=== PATIENT | female | born 1990 | race African-American/Black ===

== ENCOUNTER 2017-01-14 21:08 | Emergency (ER) | payer SELFPAY ==
[2017-01-14] MEDS ORDERED: Lidocaine 2% Viscous Solution 15 ML Cup PO ONE (21:30)
[2017-01-14] MEDS ORDERED: Benzocaine 20% Topical Spray UD MUCMEM ONE (21:30)
--- NOTE | 2017-01-14 21:35 | EDM.PDOC ---
ED HPI GENERAL MEDICAL PROBLEM - General Chief Complaint: ENT Problem Stated Complaint: TOOTH PAIN Time Seen by Provider: 01/14/17 21:32 Source of Information: Reports: Patient History Limitations: Reports: No Limitations - History of Present Illness INITIAL COMMENTS - FREE TEXT/NARRATIVE: History of present illness: [18-year-old female presenting with complaints of right lower tooth pain in the area of approximately 27. 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 Past medical history: As per history of present illness and as reviewed below otherwise noncontributory. Surgical history: As per history of present illness and as reviewed below otherwise noncontributory. Social history: No reported history of drug or alcohol abuse. Family history: As per history of present illness and as reviewed below otherwise noncontributory. Physical exam: HEENT: Atraumatic, normocephalic, pupils reactive, negative for conjunctival pallor or scleral icterus, mucous membranes moist, throat clear, neck supple, nontender, trachea midline. Lungs: Clear to auscultation, breath sounds equal bilaterally, chest nontender. Heart: S1S2, regular, negative for clicks, rubs, or JVD. Abdomen: Soft, nondistended, nontender. Negative for masses or hepatosplenomegaly. Negative for costovertebral tenderness. Pelvis: Stable nontender. Genitourinary: Deferred. Rectal: Deferred. Extremities: Atraumatic, negative for cords or calf pain. Neurovascular unremarkable. Neuro: Awake, alert, oriented. Cranial nerves II through XII unremarkable. Cerebellum unremarkable. Motor and sensory unremarkable throughout. Exam nonfocal. Poor dental hygiene with tooth fracture down to the gumline with obvious caries present Diagnostics: [] Therapeutics: [Dental balls] Impression: [Dental caries, dental abscess] Plan: [Amoxicillin, dental balls, ibuprofen [id number] or Tylenol] Definitive disposition and diagnosis as appropriate pending reevaluation and review of above. 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 (See Below) Other OB/BYN History: Social & Family History - Family History Family Medical History: Noncontributory - Tobacco Use Smoking Status *Q: Never Smoker - Caffeine Use Caffeine Use: Reports: None - Recreational Drug Use Recreational Drug Use: No ED ROS ENT - Review of Systems Review Of Systems: See Below (History of present illness) ED EXAM, ENT - Physical Exam Exam: See Below (See history of present illness) Course - Vital Signs Last Recorded V/S: Last Vital Signs Temp 36.1 C 01/14/17 21:20 Pulse 93 01/14/17 21:20 Resp 18 01/14/17 21:20 BP 119/70 01/14/17 21:20 Pulse Ox 99 01/14/17 21:20 - Orders/Labs/Meds Meds: Medications Discontinued Medications Generic Name Dose Route Start Last Admin Trade Name Frank PRN Reason Stop Dose Admin Benzocaine 2 each 01/14/17 21:30 Hurricaine One 20% MUCMEM 01/14/17 21:31 ONETIME ONE Lidocaine HCl 15 ml 01/14/17 21:30 Xylocaine 2% Viscous PO 01/14/17 21:31 ONETIME ONE Departure - Departure Time of Disposition: 21:34 Disposition: Home, Self-Care 01 Condition: Good Clinical Impression: Dental caries extending into dentin - Discharge Information Prescriptions: Amoxicillin [IMW: Amoxicillin] 500 mg PO .THREE TIMES DAILY #30 cap Forms: ED Department Discharge Additional Instructions: The following information is given to patients seen in the emergency department who are being discharged to home. This information is to outline your options for follow-up care. We provide all patients seen in our emergency department with a follow-up referral. The need for follow-up, as well as the timing and circumstances, are variable depending upon the specifics of your emergency department visit. If you don't have a primary care physician on staff, we will provide you with a referral. We always advise you to contact your personal physician following an emergency department visit to inform them of the circumstance of the visit and for follow-up with them and/or the need for any referrals to a consulting specialist. The emergency department will also refer you to a specialist when appropriate. This referral assures that you have the opportunity for follow-up care with a specialist. All of these measure are taken in an effort to provide you with optimal care, which includes your follow-up. Under all circumstances we always encourage you to contact your private physician who remains a resource for coordinating your care. When calling for follow-up care, please make the office aware that this follow-up is from your recent emergency room visit. If for any reason you are refused follow-up, please contact the [facility] Emergency Department at and asked to speak to the emergency department charge nurse. Take medication as directed Follow-up with the dentist TUAN Follow-up the primary care provider one to 2 days Return to ED as needed as discussed [facility] [address] [place] [id number]
[2017-01-15 01:35] VITALS: BP 118/68
== END 2017-01-14 21:55 | disposition home or self-care (01) ==
LOC: MERGE 21:08 → MW.ED 21:08
DX: K02.7 Dental root caries (principal); K04.7 Periapical abscess without sinus
CPT/HCPCS: 99282; A9270

== ENCOUNTER 2017-01-17 07:29 | Emergency (ER) | payer SELFPAY ==
--- NOTE | 2017-01-17 07:34 | EDM.PDOC ---
ED HPI GENERAL MEDICAL PROBLEM - General Stated Complaint: TOOTH PAIN Time Seen by Provider: 01/17/17 07:31 Source of Information: Reports: Patient - History of Present Illness INITIAL COMMENTS - FREE TEXT/NARRATIVE: HISTORY AND PHYSICAL: History of present illness: Patient presents with dental pain she is 19 weeks with IUP, she was just seen and cleared from OB department She was also seen on January 14 with dental pain and provided amoxicillin 500 mg by mouth 3 times a day she has not taken this medication presents as such continued pain 7 out of 10 right lower jaw is swollen and tender gums consistent with early abscess formation nothing for drainage at this point No fever nausea vomiting chills sweats Review of systems: As per history of present illness and below otherwise all systems reviewed and negative. Past medical history: As per history of present illness and as reviewed below otherwise noncontributory. Surgical history: As per history of present illness and as reviewed below otherwise noncontributory. Social history: No reported history of drug or alcohol abuse. Family history: As per history of present illness and as reviewed below otherwise noncontributory. Physical exam: HEENT: Atraumatic, normocephalic, pupils reactive, negative for conjunctival pallor or scleral icterus, mucous membranes moist, throat clear, neck supple, nontender, trachea midline. Generally poor dentition noted Lungs: Clear to auscultation, breath sounds equal bilaterally, chest nontender. Heart: S1S2, regular, negative for clicks, rubs, or JVD. Abdomen: Soft, nondistended, nontender. Negative for masses or hepatosplenomegaly. Negative for costovertebral tenderness. Pelvis: Stable nontender. Genitourinary: Deferred. Rectal: Deferred. Extremities: Atraumatic, negative for cords or calf pain. Neurovascular unremarkable. Neuro: Awake, alert, oriented. Cranial nerves II through XII unremarkable. Cerebellum unremarkable. Motor and sensory unremarkable throughout. Exam nonfocal. Diagnostics: [] Therapeutics: []Amoxicillin 500 by mouth 3 times a day #30 provided previously please take these medications [place] Continue ibuprofen as needed Impression: []Medication noncompliance Dental pain Dental caries Early abscess formation 19-20 weeks with IUP Definitive disposition and diagnosis as appropriate pending reevaluation and review of above. 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 ED EXAM, GENERAL - Physical Exam Exam: See Below Departure - Departure Time of Disposition: 07:33 Disposition: Home, Self-Care 01 Condition: Good Clinical Impression: Dental caries extending into dentin - Discharge Information Additional Instructions: Continue medications taking amoxicillin 3 times daily as prescribed Pain medicine as directed Follow-up with dentist as soon as possible The following information is given to patients seen in the emergency department who are being discharged to home. This information is to outline your options for follow-up care. We provide all patients seen in our emergency department with a follow-up referral. The need for follow-up, as well as the timing and circumstances, are variable depending upon the specifics of your emergency department visit. If you don't have a primary care physician on staff, we will provide you with a referral. We always advise you to contact your personal physician following an emergency department visit to inform them of the circumstance of the visit and for follow-up with them and/or the need for any referrals to a consulting specialist. The emergency department will also refer you to a specialist when appropriate. This referral assures that you have the opportunity for follow-up care with a specialist. All of these measure are taken in an effort to provide you with optimal care, which includes your follow-up. Under all circumstances we always encourage you to contact your private physician who remains a resource for coordinating your care. When calling for follow-up care, please make the office aware that this follow-up is from your recent emergency room visit. If for any reason you are refused follow-up, please contact the [facility] emergency department at and asked to speak to the emergency department charge nurse.
== END 2017-01-17 08:10 | disposition home or self-care (01) ==
LOC: MW.ED 07:29
CPT/HCPCS: 99282

== ENCOUNTER 2017-04-29 03:54 | Inpatient (IN) | payer MEDICAID ==
[2017-04-29] MEDS ORDERED: Nalbuphine 10 MG/1 ML Vial IVPUSH PRN (04:20)
[2017-04-29] MEDS ORDERED: Sodium Chloride 0.9% 10 ML Syringe FLUSH PRN (04:20)
[2017-04-29] MEDS ORDERED: Lidocaine 1% 50 ML MDV INJECT PRN (04:20)
[2017-04-29] MEDS ORDERED: Carboprost Tromethamine 250 MCG/1 ML Amp IM PRN (04:20)
[2017-04-29] MEDS ORDERED: Butorphanol 1 MG/ML SDV IVPUSH PRN (04:20)
[2017-04-29] MEDS ORDERED: Sodium Chloride 0.9% 2.5 ML Syringe FLUSH PRN (04:20)
[2017-04-29] MEDS ORDERED: Methylergonovine 0.2 MG/1 ML Amp IM PRN ×2 (04:20→05:50)
[2017-04-29] MEDS ORDERED: Water For Irrigation,Sterile 1,000 ML Container IRR PRN (04:20)
[2017-04-29] MEDS ORDERED: Misoprostol 200 MCG Tab PO PRN (04:20)
[2017-04-29] MEDS ORDERED: Lactated Ringers 1,000 ML IV SCH (04:30)
[2017-04-29] MEDS ORDERED: Oxytocin/0.9 % Sodium Chloride 30 UNIT/500 ML BAG IV SCH (04:30)
[2017-04-29] MEDS ORDERED: Lanolin 100% Cream 7 GM Tube TOP PRN (05:50)
[2017-04-29] MEDS ORDERED: Witch Hazel Medicated Pads 40/Jar TOP PRN (05:50)
[2017-04-29] MEDS ORDERED: Benzocaine/Menthol 20%-0.5% Spray 78 GM Cannister TOP PRN (05:50)
[2017-04-29] MEDS ORDERED: Docusate Sodium 100 MG Cap PO PRN (05:50)
[2017-04-29] MEDS ORDERED: Bisacodyl 10 MG Supp RECTAL PRN (05:50)
--- NOTE | 2017-04-29 06:32 | PCM.LDHP ---
<Tommy Chawla - Last Filed: 04/29/17 06:26> L&D History of Present Illness - General Date of Service: 04/29/17 Admit Problem/Dx: Patient Status Order with Admit Dx/Problem 04/29/17 05:50 Patient Status [ADT] Routine Admission Diagnosis/Problem Admission Diagnosis/Problem Source of Information: Family History Limitations: Reports: Language Barrier (Used lens and frames prescription clerk through hospital IT) - History of Present Illness Introduction:: A 36yo female at 38wk6d arrived at labor and delivery with increasing labor pains and contraction frequency. She states that she began to go into labor yesterday, 04/29/17, at 12pm. She came in when the contractions became intense. Timing/Duration: Reports: gradual onset Location, : Reports: Uterus Quality: Reports: Dull Severity: Moderate Pain Score: 10 - Related Data Allergies/Adverse Reactions: Allergies Allergy/AdvReac Type Severity Reaction Status Date / Time No Known Allergies Allergy Verified 01/17/17 05:43 Home Medications: Home Meds Amoxicillin [IMW: Amoxicillin] 500 mg PO TID 01/17/17 [History] Dental Balls 1 - 2 unit BUCCAL ASDIRECTED 01/17/17 [History] Pnv No.122/Iron/Folic Acid [ Multi Tablet] 1 each PO DAILY 01/17/17 [ History] Past Medical History - Past Health History Medical/Surgical History: Denies Medical/Surgical History HEENT History: Reports: Other (See Below) Other HEENT History: dental caries Cardiovascular History: Reports: None Respiratory History: Reports: None Gastrointestinal History: Reports: None Genitourinary History: Reports: None 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 Denies: Hepatitis A, Hepatitis B, Hepatitis C - Past Surgical History Head Surgeries/Procedures: Reports: None Cardiovascular Surgical History: Reports: None Respiratory Surgical History: Reports: None GI Surgical History: Reports: None Female Surgical History: Reports: None Male Surgical History: Reports: None Endocrine Surgical History: Reports: None Neurological Surgical History: Reports: None Musculoskeletal Surgical History: Reports: None Oncologic Surgical History: Reports: None Dermatological Surgical History: Reports: None Social & Family History - Family History Family Medical History: Noncontributory - Tobacco Use Smoking Status *Q: Never Smoker Second Hand Smoke Exposure: No - Caffeine Use Caffeine Use: Reports: Coffee, Soda - Alcohol Use Alcohol Use History: No - Recreational Drug Use Recreational Drug Use: No - Sexual History Sexual History: Reports: None Other Sexual History Comment: Claims she only has had one partner - Living Situation & Occupation Living situation: Reports: Occupation: Unemployed Social History Comment: She lives at home in [place] with her , Jihan , and one child(2yo). 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 They stated that one child is still in the [facility]. H&P Review of Systems - Review of Systems: Review Of Systems: See Below General: Denies: Fever, Chills HEENT: Reports: Other (Tooth Pain). Denies: Ear Pain, Eye Pain, Hearing Changes Pulmonary: Denies: Shortness of Breath, Pleuritic Chest Pain, Cough Cardiovascular: Denies: Chest Pain, Palpitations, Dyspnea on Exertion Gastrointestinal: Denies: Constipation, Nausea, Vomiting Genitourinary: Denies: Dysuria, Frequency, Burning, Pain, Urgency Musculoskeletal: Denies: Neck Pain Psychiatric: Denies: Confusion Neurological: Denies: Confusion, Dizziness, Headache L&D Exam - Vital Signs Weight: 72.575 kg - OB Specific Contraction Intensity: Mild to Moderate Movement: Active Heart Tones: Present Heart Tones per Min: 150 Heart Rate (FHR) Variability: Moderate (6-25 bmp) Presentation: Right Occiput Anterior (ANDREW) - Exam General: Alert, Oriented HEENT: Hearing Intact, Mucosa Moist & [place], Pupils Reactive, Other (Multiple Dental Caries) Neck: Supple, Trachea Midline Lungs: Clear to Auscultation, Normal Respiratory Effort Cardiovascular: Regular Rate, Regular Rhythm GI/Abdominal Exam: Normal Bowel Sounds, Soft Genitourinary: Normal external exam Back Exam: Full Range of Motion Extremities: Normal Inspection, Normal Range of Motion, Non-Tender, Pedal Edema (trace) Skin: Warm, Dry, Intact Neurological: Cranial Nerves Intact Psychiatric: Alert, Normal Affect, Normal Mood - Patient Data Lab Results Last 24 hrs: Laboratory Results - last 24 hr 04/29/17 04/29/17 Range/Units 04:34 04:34 WBC 9.32 (4.0-11.0) K/uL RBC 4.69 (4.30-5.90) M/uL Hgb 11.9 L (12.0-16.0) g/dL Hct 36.4 (36.0-46.0) % MCV 77.6 L (80.0-98.0) fL MCH 25.4 L (27.0-32.0) pg MCHC 32.7 (31.0-37.0) g/dL RDW Std Deviation 41.8 (28.0-62.0) fl RDW Coeff of Aiden 15 (11.0-15.0) % Plt Count 176 (150-400) K/uL MPV 11.40 (7.40-12.00) fL Nucleated RBC % 0.0 /100WBC Nucleated RBCs # 0 K/uL Blood Type O POSITIVE Antibody Screen NEGATIVE Result Diagrams: 04/29/17 04:34 - Problem List (1) SNOMED Code(s): 66331135 ICD Code: Z34.90 - ENCNTR FOR SUPRVSN OF NORMAL , UNSP, UNSP TRIMESTER Status: Acute Current Visit: Yes QualifierTitle: Weeks of gestation: 38 weeks Qualified Code(s): Z3A.38 - 38 weeks gestation of Problem List Initiated/Reviewed/Updated: Yes Orders Last 24hrs: Active Orders 24 hr Category Date Time Status Patient Status [ADT] Routine ADT 04/29/17 05:50 Active Heart Tones [RC] CONTINUOUS Care 04/29/17 04:21 Inactive Non Stress Test [RC] PER UNIT ROUTINE Care 04/29/17 04:21 Inactive May Shower [RC] ASDIRECTED Care 04/29/17 05:50 Active Up ad Saloni [RC] ASDIRECTED Care 04/29/17 05:50 Active Vaginal Exam [RC] PRN Care 04/29/17 04:21 Inactive Vital Signs [RC] PER UNIT ROUTINE Care 04/29/17 04:21 Inactive Vital Signs [RC] PER UNIT ROUTINE Care 04/29/17 05:50 Active Regular Diet [DIET] Diet 04/29/17 Breakfast Active HEMOGLOBIN/HEMATOCRIT,HH [HEME] Timed Lab 04/30/17 05:11 Ordered Acetaminophen [Tylenol Extra Strength] Med 04/29/17 05:50 Active 1,000 mg PO Q4H PRN Benzocaine/Menthol [Dermoplast Pain Relief 20%-0.5% Med 04/29/17 05:50 Active [employer]] 78 gm TOP ASDIRECTED PRN Bisacodyl [Dulcolax] Med 04/29/17 05:50 Active 10 mg RECTAL .ONCE PRN Docusate Sodium [Colace] Med 04/29/17 05:50 Active 100 mg PO BID PRN Ibuprofen [Motrin] Med 04/29/17 05:50 Active 800 mg PO Q6H PRN Lanolin [Lansinoh HPA] Med 04/29/17 05:50 Active See Dose Instructions TOP ASDIRECTED PRN Methylergonovine [Methergine] Med 04/29/17 05:50 Active 0.2 mg IM .ONCE PRN Witwes Wagnerel [Tucks] Med 04/29/17 05:50 Active 1 pad TOP ASDIRECTED PRN oxyCODONE Med 04/29/17 05:50 Active 5 mg PO Q2H PRN Assess Lochia [WOMSER] Per Unit Routine Oth 04/29/17 05:50 Ordered Assess Uterine Involution [WOMSER] Per Unit Routine Oth 04/29/17 05:50 Ordered Perineal Care [OM.PC] Per Unit Routine Oth 04/29/17 05:51 Ordered Peripheral IV Discontinue [OM.PC] Routine Oth 04/29/17 05:50 Ordered Resuscitation Status Routine Resus Stat 04/29/17 05:50 Ordered Medication Orders Acetaminophen (Tylenol Extra Strength) 1,000 mg PO Q4H PRN PRN Reason: Pain Benzocaine/Menthol (Dermoplast Pain Relief 20%-0.5% [employer]) 78 gm TOP ASDIRECTED PRN PRN Reason: Perineal Comfort Measure Bisacodyl (Dulcolax) 10 mg RECTAL .ONCE PRN PRN Reason: Constipation Docusate Sodium (Colace) 100 mg PO BID PRN PRN Reason: Constipation Emollient Ointment (Lansinoh Hpa) 0 gm TOP ASDIRECTED PRN PRN Reason: Sore Nipples Ibuprofen (Motrin) 800 mg PO Q6H PRN PRN Reason: Pain Methylergonovine Maleate (Methergine) 0.2 mg IM .ONCE PRN PRN Reason: Excessive Vaginal Bleeding Oxycodone HCl (Oxycodone) 5 mg PO Q2H PRN PRN Reason: Pain Witch Mitzi (Tucks) 1 pad TOP ASDIRECTED PRN PRN Reason: comfort care Assessment/Plan Comment:: Assessment:Patient 26yo F at 38wk6d in active labor heart rate in 150s Contraction:Every 2-3 mins :No known complications Patient Asked for contraception before she leaves Patient plans to bottle feed Plan:Admit to L&D Anticipate <Alie Jiménez - Last Filed: 04/29/17 12:36> L&D History of Present Illness - General Admit Problem/Dx: Patient Status Order with Admit Dx/Problem 04/29/17 05:50 Patient Status [ADT] Routine Admission Diagnosis/Problem Admission Diagnosis/Problem L&D Exam - Exam Exam: See Below - Vital Signs Vital Signs: Last Vital Signs Temp 36.8 C 04/29/17 08:00 Pulse 89 04/29/17 08:00 Resp 16 04/29/17 08:00 BP 106/59 L 04/29/17 08:00 Pulse Ox 99 04/29/17 08:00 - Patient Data Lab Results Last 24 hrs: Laboratory Results - last 24 hr 04/29/17 04/29/17 Range/Units 04:34 04:34 WBC 9.32 (4.0-11.0) K/uL RBC 4.69 (4.30-5.90) M/uL Hgb 11.9 L (12.0-16.0) g/dL Hct 36.4 (36.0-46.0) % MCV 77.6 L (80.0-98.0) fL MCH 25.4 L (27.0-32.0) pg MCHC 32.7 (31.0-37.0) g/dL RDW Std Deviation 41.8 (28.0-62.0) fl RDW Coeff of Aiden 15 (11.0-15.0) % Plt Count 176 (150-400) K/uL MPV 11.40 (7.40-12.00) fL Nucleated RBC % 0.0 /100WBC Nucleated RBCs # 0 K/uL Blood Type O POSITIVE Antibody Screen NEGATIVE Result Diagrams: 04/29/17 04:34 Orders Last 24hrs: Active Orders 24 hr Category Date Time Status Patient Status [ADT] Routine ADT 04/29/17 05:50 Active Heart Tones [RC] CONTINUOUS Care 04/29/17 04:21 Inactive Non Stress Test [RC] PER UNIT ROUTINE Care 04/29/17 04:21 Inactive May Shower [RC] ASDIRECTED Care 04/29/17 05:50 Active Up ad Saloni [RC] ASDIRECTED Care 04/29/17 05:50 Active Vaginal Exam [RC] PRN Care 04/29/17 04:21 Inactive Vital Signs [RC] PER UNIT ROUTINE Care 04/29/17 04:21 Inactive Vital Signs [RC] PER UNIT ROUTINE Care 04/29/17 05:50 Active Regular Diet [DIET] Diet 04/29/17 Breakfast Active HEMOGLOBIN/HEMATOCRIT,HH [HEME] Timed Lab 04/30/17 05:11 Ordered Acetaminophen [Tylenol Extra Strength] Med 04/29/17 05:50 Active 1,000 mg PO Q4H PRN Benzocaine/Menthol [Dermoplast Pain Relief 20%-0.5% Med 04/29/17 05:50 Active [employer]] 78 gm TOP ASDIRECTED PRN Bisacodyl [Dulcolax] Med 04/29/17 05:50 Active 10 mg RECTAL .ONCE PRN Docusate Sodium [Colace] Med 04/29/17 05:50 Active 100 mg PO BID PRN Ibuprofen [Motrin] Med 04/29/17 05:50 Active 800 mg PO Q6H PRN Lanolin [Lansinoh HPA] Med 04/29/17 05:50 Active See Dose Instructions TOP ASDIRECTED PRN Methylergonovine [Methergine] Med 04/29/17 05:50 Active 0.2 mg IM .ONCE PRN Witch Mitzi [Tucks] Med 04/29/17 05:50 Active 1 pad TOP ASDIRECTED PRN oxyCODONE Med 04/29/17 05:50 Active 5 mg PO Q2H PRN Assess Lochia [WOMSER] Per Unit Routine Oth 04/29/17 05:50 Ordered Assess Uterine Involution [WOMSER] Per Unit Routine Oth 04/29/17 05:50 Ordered Perineal Care [OM.PC] Per Unit Routine Oth 04/29/17 05:51 Ordered Peripheral IV Discontinue [OM.PC] Routine Oth 04/29/17 05:50 Ordered Resuscitation Status Routine Resus Stat 04/29/17 05:50 Ordered Medication Orders Acetaminophen (Tylenol Extra Strength) 1,000 mg PO Q4H PRN PRN Reason: Pain Benzocaine/Menthol (Dermoplast Pain Relief 20%-0.5% [employer]) 78 gm TOP ASDIRECTED PRN PRN Reason: Perineal Comfort Measure Bisacodyl (Dulcolax) 10 mg RECTAL .ONCE PRN PRN Reason: Constipation Docusate Sodium (Colace) 100 mg PO BID PRN PRN Reason: Constipation Emollient Ointment (Lansinoh Hpa) 0 gm TOP ASDIRECTED PRN PRN Reason: Sore Nipples Ibuprofen (Motrin) 800 mg PO Q6H PRN PRN Reason: Pain Last Admin: 04/29/17 08:07 Dose: 800 mg Methylergonovine Maleate (Methergine) 0.2 mg IM .ONCE PRN PRN Reason: Excessive Vaginal Bleeding Oxycodone HCl (Oxycodone) 5 mg PO Q2H PRN PRN Reason: Pain Witch Mitzi (Tucks) 1 pad TOP ASDIRECTED PRN PRN Reason: comfort care Assessment/Plan Comment:: Patient was seen and examined by me and I agree with above.
--- NOTE | 2017-04-29 07:03 | OR ---
SURGEON: Alie Jiménez M.D. DATE OF PROCEDURE: 04/29/2017 PREOPERATIVE DIAGNOSIS: 38 and 6/7th week intrauterine , active spontaneous labor. POSTOPERATIVE DIAGNOSIS: 38 and 6/7th week intrauterine , active spontaneous labor. PROCEDURE: Term spontaneous vaginal delivery. MARKETING AUTOMATION SPECIALIST: Tommy Chawla MS4. ANESTHESIA: None. ESTIMATED BLOOD LOSS: Less than 200 mL. FINDINGS: Live born male, scores 9 and 9 nine, weighing 2610 g. Placenta spontaneous, Berry intact with 3 vessels. Intact perineum. COMPLICATIONS: None known. DISPOSITION: Stable in LDRP. BRIEF HISTORY: This is a 26-year-old female. She is G3, P2. She presents at 38 and 6/7th weeks' gestation in active spontaneous labor. She was 7-8 cm dilated upon admission. She was admitted, received an IV. She has had care. Last seen in January in the clinic with Hellen Whyte. At that time, she then moved to [place] where she did have some care with records being unavailable. She does note that she received her flu shot and her Tdap. She returned to [place] approximately 2 months ago. She did not again present for care. I have no records available for her. Laboratory studies include blood type O positive, antibody negative. She is HIV negative, Hep B negative, hepatitis C negative, rubella immune. She presents to Labor and Delivery 7-8 cm dilated and progressed rapidly to complete. DESCRIPTION OF PROCEDURE: With the patient in the dorsal lithotomy position, the patient pushed over 10- minute time period to a 5+ station, at which time the head was delivered spontaneously and atraumatically over the perineum with support with subsequent delivery of the infant's shoulders and body without any difficulty. The infant was bulb suctioned by nose and mouth. The cord was clamped x2 and cut, and the infant was handed to the nurse in attendance at delivery. The was a liveborn male, scores 9 and 9, weighing 2610 g. Placenta was delivered spontaneously, Berry intact with 3 vessels. There was a small trailing membrane which was removed with a ring forceps. Upon inspection of the pelvis and perineum, there were no periurethral, vaginal sidewall, cervical, rectal, or perineal lacerations. EBL was less than 200 mL. There were no known complications. Mother and are in LDRP in good condition. Membranes were intact upon admission and ruptured at the time of delivery due to rapid presentation and unknown group B strep status with low risk status. She did not receive group B Strep prophylaxis. MARGO SCALES /[id number]
[2017-04-29] MEDS: Ibuprofen 800 MG Tab PO PRN ×2 (08:07→16:29)
[2017-04-29] MEDS: oxyCODONE 5 MG Tab PO PRN (13:10)
[2017-04-29] MEDS: Acetaminophen 500 MG Tab PO PRN (13:13)
[2017-04-30] MEDS: Ibuprofen 800 MG Tab PO PRN (02:49)
[2017-04-30 08:50] VITALS: BP 109/62
[2017-04-30] MEDS: oxyCODONE 5 MG Tab PO PRN (09:40)
[2017-04-30] MEDS: Acetaminophen 500 MG Tab PO PRN (09:41)
--- NOTE | 2017-04-30 10:21 | PCM.PNPP ---
<Tommy Chawla - Last Filed: 04/30/17 10:12> - General Info Date of Service: 04/30/17 Functional Status: Reports: Pain Controlled, Tolerating Diet, Ambulating, Urinating - Review of Systems General: Denies: Fever, Weakness HEENT: Denies: Dysphasia, Headaches, Visual Changes Pulmonary: Denies: Shortness of Breath Cardiovascular: Denies: Chest Pain, Palpitations Gastrointestinal: Denies: Abdominal Pain, Diarrhea, Nausea, Vomiting Genitourinary: Denies: Dysuria, Frequency Musculoskeletal: Denies: Neck Pain Neurological: Denies: Confusion, Dizziness, Headache Psychiatric: Denies: Confusion, Depression - General Info Date of Service: 04/30/17 - Patient Data Vital Signs - Most Recent: Last Vital Signs Temp 98.0 F 04/30/17 08:00 Pulse 82 04/30/17 08:00 Resp 14 04/30/17 08:00 BP 109/62 04/30/17 08:00 Pulse Ox 98 04/30/17 08:00 Weight - Most Recent: 72.575 kg Lab Results - Last 24 Hours: Laboratory Results - last 24 hr 04/30/17 Range/Units 05:32 Hgb 11.6 L (12.0-16.0) g/dL Hct 35.6 L (36.0-46.0) % Med Orders - Current: Current Medications Acetaminophen (Tylenol Extra Strength) 1,000 mg PO Q4H PRN PRN Reason: Pain Last Admin: 04/30/17 09:41 Dose: 1,000 mg Benzocaine/Menthol (Dermoplast Pain Relief 20%-0.5% [place]) 78 gm TOP ASDIRECTED PRN PRN Reason: Perineal Comfort Measure Bisacodyl (Dulcolax) 10 mg RECTAL .ONCE PRN PRN Reason: Constipation Docusate Sodium (Colace) 100 mg PO BID PRN PRN Reason: Constipation Emollient Ointment (Lansinoh Hpa) 0 gm TOP ASDIRECTED PRN PRN Reason: Sore Nipples Ibuprofen (Motrin) 800 mg PO Q6H PRN PRN Reason: Pain Last Admin: 04/30/17 02:49 Dose: 800 mg Methylergonovine Maleate (Methergine) 0.2 mg IM .ONCE PRN PRN Reason: Excessive Vaginal Bleeding Oxycodone HCl (Oxycodone) 5 mg PO Q2H PRN PRN Reason: Pain Last Admin: 04/30/17 09:40 Dose: 5 mg Witch Mitzi (Tucks) 1 pad TOP ASDIRECTED PRN PRN Reason: comfort care Discontinued Medications Butorphanol Tartrate (Stadol) 1 mg IVPUSH Q1H PRN PRN Reason: Pain Last Admin: 04/29/17 05:16 Dose: 1 mg Carboprost Tromethamine (Hemabate Ds) 250 mcg IM ASDIRECTED PRN PRN Reason: Post Hemorrhage Lactated Ringer's (Ringers, Lactated) 1,000 mls @ 150 mls/hr IV ASDIRECTED GAUTAM Last Admin: 04/29/17 04:48 Dose: 150 mls/hr Oxytocin/Sodium Chloride (Oxytocin 30 Unit/500 Ml-Ns) 30 unit in 500 mls @ 999 mls/hr IV ASDIRECTED [facility] Last Admin: 04/29/17 05:10 Dose: 999 mls/hr Lidocaine HCl (Xylocaine 1%) 50 ml INJECT .ONCE PRN PRN Reason: Laceration repair Methylergonovine Maleate (Methergine) 0.2 mg IM ASDIRECTED PRN PRN Reason: Post Hemorrhage Misoprostol (Cytotec) 200 mcg PO .ONCE PRN PRN Reason: Post Hemorrhage Nalbuphine HCl (Nubain) 10 mg IVPUSH Q1H PRN PRN Reason: Pain (severe 7-10) Sodium Chloride (Saline Flush) 10 ml FLUSH ASDIRECTED PRN PRN Reason: Keep Vein Open Sodium Chloride (Saline Flush) 2.5 ml FLUSH ASDIRECTED PRN PRN Reason: Keep Vein Open Sterile Water (Sterile Water For Irrigation) 1,000 ml IRR ASDIRECTED PRN PRN Reason: delivery Last Admin: 04/29/17 05:17 Dose: 1,000 ml - Infant Interaction Disposition, : [place] in Room with Family Infant Interaction: Holding Infant Feeding: Bottle Fed Infant Support Person: - Recovery Exam Fundal Tone: Firm Fundal Level: 2 Fingerbreadths Below Umbilicus Fundal Placement: Midline Lochia Amount: Scant Lochia Color: Rubra/Red Perineum Description: Intact, Minimal Bruising/Swelling Episiotomy/Laceration: None Bladder Status: Voiding Urinary Elimination: Voided - Exam General: Alert, Oriented HEENT: Pupils Reactive, Mucous Membr. Moist/[place] Neck: Trachea Midline Lungs: Clear to Auscultation, Normal Respiratory Effort Cardiovascular: Regular Rate, Regular Rhythm GI/Abdominal Exam: Normal Bowel Sounds, Soft Extremities: Normal Inspection, Normal Range of Motion, Pedal Edema (trace) Skin: Warm, Dry, Intact Neurological: No New Focal Deficit Psy/Mental Status: Alert, Normal Affect, Normal Mood - Problem List & Annotations (1) SNOMED Code(s): 57322571 Code(s): Z34.90 - ENCNTR FOR SUPRVSN OF NORMAL , UNSP, UNSP TRIMESTER Status: Acute Current Visit: Yes QualifierTitle: Weeks of gestation: 38 weeks Qualified Code(s): Z3A.38 - 38 weeks gestation of - Problem List Review Problem List Initiated/Reviewed/Updated: Yes - Assessment Assessment:: PPD #1 - at 38wk. Minimal pain and lochia. Bottle feeding is going well. - Plan Plan:: Patient wishes to discharge today and if no complication arise and if baby is ready to be discharged. Discharge instruction reviewed. Patient felt comfortable with taking care of baby. Nothing in the vagina for 6 weeks and she can still get even without a period. Instructed patient to call if she has a fever above 101 or bleeding through a pad in less than 1 hour. Educated on common emotional changes and when to let us know if symptoms worsen. Take ibuprofen/tylenol as needed for pain. Follow up with [facility] in 6 weeks. <Alie Jiménez - Last Filed: 04/30/17 11:32> - Patient Data Vital Signs - Most Recent: Last Vital Signs Temp 36.7 C 04/30/17 08:00 Pulse 82 04/30/17 08:00 Resp 14 04/30/17 08:00 BP 109/62 04/30/17 08:00 Pulse Ox 98 04/30/17 08:00 Lab Results - Last 24 Hours: Laboratory Results - last 24 hr 04/30/17 Range/Units 05:32 Hgb 11.6 L (12.0-16.0) g/dL Hct 35.6 L (36.0-46.0) % Med Orders - Current: Current Medications Acetaminophen (Tylenol Extra Strength) 1,000 mg PO Q4H PRN PRN Reason: Pain Last Admin: 04/30/17 09:41 Dose: 1,000 mg Benzocaine/Menthol (Dermoplast Pain Relief 20%-0.5% [place]) 78 gm TOP ASDIRECTED PRN PRN Reason: Perineal Comfort Measure Bisacodyl (Dulcolax) 10 mg RECTAL .ONCE PRN PRN Reason: Constipation Docusate Sodium (Colace) 100 mg PO BID PRN PRN Reason: Constipation Emollient Ointment (Lansinoh Hpa) 0 gm TOP ASDIRECTED PRN PRN Reason: Sore Nipples Ibuprofen (Motrin) 800 mg PO Q6H PRN PRN Reason: Pain Last Admin: 04/30/17 02:49 Dose: 800 mg Methylergonovine Maleate (Methergine) 0.2 mg IM .ONCE PRN PRN Reason: Excessive Vaginal Bleeding Oxycodone HCl (Oxycodone) 5 mg PO Q2H PRN PRN Reason: Pain Last Admin: 04/30/17 09:40 Dose: 5 mg Witch Mitzi (Tucks) 1 pad TOP ASDIRECTED PRN PRN Reason: comfort care Discontinued Medications Butorphanol Tartrate (Stadol) 1 mg IVPUSH Q1H PRN PRN Reason: Pain Last Admin: 04/29/17 05:16 Dose: 1 mg Carboprost Tromethamine (Hemabate Ds) 250 mcg IM ASDIRECTED PRN PRN Reason: Post Hemorrhage Lactated Ringer's (Ringers, Lactated) 1,000 mls @ 150 mls/hr IV ASDIRECTED [facility] Last Admin: 04/29/17 04:48 Dose: 150 mls/hr Oxytocin/Sodium Chloride (Oxytocin 30 Unit/500 Ml-Ns) 30 unit in 500 mls @ 999 mls/hr IV ASDIRECTED [facility] Last Admin: 04/29/17 05:10 Dose: 999 mls/hr Lidocaine HCl (Xylocaine 1%) 50 ml INJECT .ONCE PRN PRN Reason: Laceration repair Methylergonovine Maleate (Methergine) 0.2 mg IM ASDIRECTED PRN PRN Reason: Post Hemorrhage Misoprostol (Cytotec) 200 mcg PO .ONCE PRN PRN Reason: Post Hemorrhage Nalbuphine HCl (Nubain) 10 mg IVPUSH Q1H PRN PRN Reason: Pain (severe 7-10) Sodium Chloride (Saline Flush) 10 ml FLUSH ASDIRECTED PRN PRN Reason: Keep Vein Open Sodium Chloride (Saline Flush) 2.5 ml FLUSH ASDIRECTED PRN PRN Reason: Keep Vein Open Sterile Water (Sterile Water For Irrigation) 1,000 ml IRR ASDIRECTED PRN PRN Reason: delivery Last Admin: 04/29/17 05:17 Dose: 1,000 ml - Plan Plan:: All communication with this patient was with the use of hospital dairy processing supervisor line for [place]ic. Agree with above information. Had extensive discussion regarding contraception with the use of the dairy processing supervisor. She would like Nexplanon, I contacted Ivana Castillo from [facility] clinic and she indicated that they are unable to do Nexplanon. She will therefore go the her provider at [facility] for visit and will need to go to [facility] for Nexplanon. I will send in Rx for minipill for her in the meantime to start right away. Discussed need to take it at the same time everyday or use condoms for back up for 48 hours after regular use resumes. Discussed that she will not generally have a normal cycle with the minipill. Discussed risks and benefits of DepoProvera, Nexplanon and IUD's and she would like Nexplanon. I reviewed that it will last for 3 years, it will not give her a regular cycle, she will have irregular bleeding on it. Written information in [place]ic was provided for both the Nexplanon and for the minipill.
--- NOTE | 2017-04-30 11:48 | PCM.DCSUM1 ---
Discharge Summary - Hospital Course Free Text/Narrative:: 26 yo F at 38wk gestation arrived at L and D in active labor and unknown GBS. She was dilated to 7-8cm. The patient progressed quickly to complete and began pushing. No Abx was given for GBS due to rapid progression of labor. The patient delivered a healthy baby boy with APGARs 8 and 9 at weight 2610g. Patient was transitioned to cares. Patient has tolerated normal diet , ambulating, pain is controlled, and able to urinate pass stool. Bleeding has progressively decreased to minimum lochia and fundus has remained firm. Brief History: Patient recieved some care and was seen in January by Hellen Whyte before she moved to [place]. She returned 2 months ago but was not seen in clinic since January. Blood type O+, Hepatitis Neg, Rubella immune, GBS unknown. - Discharge Data Discharge Date: 04/30/17 Discharge Disposition: Home, Self-Care 01 Condition: Good - Discharge Diagnosis/Problem(s) (1) SNOMED Code(s): 80218510 ICD Code: Z34.90 - ENCNTR FOR SUPRVSN OF NORMAL , UNSP, UNSP TRIMESTER Status: Acute Current Visit: Yes Qualifiers: Weeks of gestation: 38 weeks Qualified Code(s): Z3A.38 - 38 weeks gestation of - Patient Summary/Data Operative Procedure(s) Performed: 26yo F at 38wk6d with unknown GBS ( no time for Abx due to rapid progression). Blood type O+, rubella immune and HIV neg. Physician:Dr. Jiménez. Hat Model: NAHOMI Bonilla. Anethesia - None. EBL - 200ml. Membranes intact. Findings - Live born male 8 2610. Complications: None known Complications: None known - Patient Instructions Diet: Regular Diet as Tolerated Activity: No Strenuous Activities, Rest and Relax Today Driving: May Drive Today Showering/Bathing: May Shower Notify Provider of: Fever, Increased Pain, Swelling and Redness, Drainage, Nausea and/or Vomiting Other/Special Instructions: Nothing per vagina for 6 weeks, call if fever, uncontrolled pain or bleeding greater than a pad per hour for 2 hours. Instructed if depression increases to call us. - Discharge Plan Prescriptions/Med Rec: Norethindrone [Mamie] 0.35 mg PO DAILY #28 tablet Home Medications: Home Meds Amoxicillin [IMW: Amoxicillin] 500 mg PO TID 01/17/17 [History] Dental Balls 1 - 2 unit BUCCAL ASDIRECTED 01/17/17 [History] Pnv No.122/Iron/Folic Acid [ Multi Tablet] 1 each PO DAILY 01/17/17 [ History] Norethindrone [Mamie] 0.35 mg PO DAILY #28 tablet 04/30/17 [Rx] Patient Handouts: Contraception Choices, [facility]-md-[id number] Referrals: Hellen Howard CNM [Mid-] - (6 weeks) Ben Mensah MD [Physician] - (call for appointment for Nexplanon ) Rafael Lake MD [Physician] - - General Info Date of Service: 04/30/17 Admission Dx/Problem (Free Text: Patient Status Order with Admit Dx/Problem 04/29/17 05:50 Patient Status [ADT] Routine Admission Diagnosis/Problem Admission Diagnosis/Problem Functional Status: Reports: Pain Controlled, Tolerating Diet, Ambulating, Urinating - Review of Systems General: Denies: Fever, Weakness HEENT: Denies: Headaches, Visual Changes Pulmonary: Denies: Shortness of Breath, Pleuritic Chest Pain Cardiovascular: Denies: Chest Pain, Palpitations Gastrointestinal: Denies: Diarrhea, Nausea, Vomiting Genitourinary: Denies: Dysuria, Burning Musculoskeletal: Denies: Neck Pain Neurological: Denies: Confusion, Dizziness, Headache Psychiatric: Denies: Confusion, Depression - Patient Data Vitals - Most Recent: Last Vital Signs Temp 98.0 F 04/30/17 08:00 Pulse 82 04/30/17 08:00 Resp 14 04/30/17 08:00 BP 109/62 04/30/17 08:00 Pulse Ox 98 04/30/17 08:00 Weight - Most Recent: 160 lb Lab Results - Last 24 hrs: Laboratory Results - last 24 hr 04/30/17 Range/Units 05:32 Hgb 11.6 L (12.0-16.0) g/dL Hct 35.6 L (36.0-46.0) % Med Orders - Current: Current Medications Acetaminophen (Tylenol Extra Strength) 1,000 mg PO Q4H PRN PRN Reason: Pain Last Admin: 04/30/17 09:41 Dose: 1,000 mg Benzocaine/Menthol (Dermoplast Pain Relief 20%-0.5% [place]) 78 gm TOP ASDIRECTED PRN PRN Reason: Perineal Comfort Measure Bisacodyl (Dulcolax) 10 mg RECTAL .ONCE PRN PRN Reason: Constipation Docusate Sodium (Colace) 100 mg PO BID PRN PRN Reason: Constipation Emollient Ointment (Lansinoh Hpa) 0 gm TOP ASDIRECTED PRN PRN Reason: Sore Nipples Ibuprofen (Motrin) 800 mg PO Q6H PRN PRN Reason: Pain Last Admin: 04/30/17 02:49 Dose: 800 mg Methylergonovine Maleate (Methergine) 0.2 mg IM .ONCE PRN PRN Reason: Excessive Vaginal Bleeding Oxycodone HCl (Oxycodone) 5 mg PO Q2H PRN PRN Reason: Pain Last Admin: 04/30/17 09:40 Dose: 5 mg Witch Mitzi (Tucks) 1 pad TOP ASDIRECTED PRN PRN Reason: comfort care Discontinued Medications Butorphanol Tartrate (Stadol) 1 mg IVPUSH Q1H PRN PRN Reason: Pain Last Admin: 04/29/17 05:16 Dose: 1 mg Carboprost Tromethamine (Hemabate Ds) 250 mcg IM ASDIRECTED PRN PRN Reason: Post Hemorrhage Lactated Ringer's (Ringers, Lactated) 1,000 mls @ 150 mls/hr IV ASDIRECTED [facility] Last Admin: 04/29/17 04:48 Dose: 150 mls/hr Oxytocin/Sodium Chloride (Oxytocin 30 Unit/500 Ml-Ns) 30 unit in 500 mls @ 999 mls/hr IV ASDIRECTED [facility] Last Admin: 04/29/17 05:10 Dose: 999 mls/hr Lidocaine HCl (Xylocaine 1%) 50 ml INJECT .ONCE PRN PRN Reason: Laceration repair Methylergonovine Maleate (Methergine) 0.2 mg IM ASDIRECTED PRN PRN Reason: Post Hemorrhage Misoprostol (Cytotec) 200 mcg PO .ONCE PRN PRN Reason: Post Hemorrhage Nalbuphine HCl (Nubain) 10 mg IVPUSH Q1H PRN PRN Reason: Pain (severe 7-10) Sodium Chloride (Saline Flush) 10 ml FLUSH ASDIRECTED PRN PRN Reason: Keep Vein Open Sodium Chloride (Saline Flush) 2.5 ml FLUSH ASDIRECTED PRN PRN Reason: Keep Vein Open Sterile Water (Sterile Water For Irrigation) 1,000 ml IRR ASDIRECTED PRN PRN Reason: delivery Last Admin: 04/29/17 05:17 Dose: 1,000 ml - Exam General: Reports: Alert, Oriented HEENT: Reports: Mucous Membr. Moist/[place] Ne[place]: Reports: Trachea Midline Lungs: Reports: Clear to Auscultation, Normal Respiratory Effort Cardiovascular: Reports: Regular Rate, Regular Rhythm GI/Abdominal Exam: Normal Bowel Sounds, Soft Back Exam: Reports: Full Range of Motion Extremities: Normal Inspection, Normal Range of Motion, Non-Tender, No Pedal Edema Skin: Reports: Warm, Dry, Intact Neurological: Reports: No New Focal Deficit Psy/Mental Status: Reports: Alert, Normal Affect, Normal Mood Discharge Operative/Procedures - Procedures Performed Operations: Normal spontaneous vaginal delivery *Q Meaningful Use (DIS) - VTE *Q VTE Criteria *Q: - Stroke *Q Stroke Criteria *Q: - AMI *Q AMI Criteria *Q:
== END 2017-04-30 15:50 | disposition home or self-care (01) | DRG 775 ==
LOC: MW.OBCHECK 03:54 → MW.OB 03:56 → MW.OBCHECK 04:21 → OBSVTOIN 05:09 → MW.OB 07:52
PROVIDERS: ADMIT Obstetrics & Gynecology; ATTEND Obstetrics & Gynecology
PROC: 10E0XZZ Delivery of Products of Conception, External Approach (ICD-10-PCS; principal; 2017-04-29)
PROC: 10907ZC Drainage of Amniotic Fluid, Therapeutic from Products of Conception, Via Natural or Artificial Opening (ICD-10-PCS; 2017-04-29)
DX: O80 Encounter for full-term uncomplicated delivery (principal); Z3A.39 39 weeks gestation of pregnancy; Z37.0 Single live birth
CPT/HCPCS: 36415; 59025; 59409; 85014; 85018; 85027; 86850; 86900; 86901; A9270-GY; J0595; J2590; J7120